=== PATIENT | male | born 1935 | race Caucasian/White ===

== ENCOUNTER 2017-05-05 07:29 | Emergency (ER) | payer MEDICARE, BC ==
[~2017-05-05] VITALS: Ht 180.3 cm; Wt 86.2 kg
[2017-05-05 07:32] VITALS: BP 159/93; PULSE 85; RESP 12; TEMP 97.7; O2SAT 97
[2017-05-05] MEDS ORDERED: COLA100C5 PO (07:58)
[2017-05-05] MEDS ORDERED: MAGNSOL2 PO (07:58)
--- NOTE | 2017-05-05 07:58 | PD ---
HPI Chief Complaint: Complaint Time Seen by Provider: 07:34 Travel History International Travel<30 days: No Contact w/Intl Traveler<30days: No Traveled to known affect area: No History of Present Illness HPI The patient is a 81 year-old male who presents to the emergency department for urinary retention and constipation. The patient states she is currently visiting from [place], playing golf with some local friends. The patient states he's had difficulty having a bowel movement over the last 3 days. He now notes difficulty urinating over the last 24 hours. The patient states he has had very little urine output since yesterday, now complains of low back pain and mild abdominal distention. He does have a history of enlarged prostate for which he takes alfusozin. He has had a previous Castanon catheter placed in the past for urinary obstruction. He denies any nausea, vomiting, or decreased appetite. He denies any associated fever, chills, or sweats. He does not have a local primary physician. Symptoms are moderate, possibly exacerbated by constipation and/or benign prostatic hypertrophy, and there are no current alleviating factors. PFSH Past Medical History Narrative Medical Benign prostatic hypertrophy, atrial fibrillation with previous ablation, arthritis Past Surgical History Narrative Surgical Appendectomy, arthroscopic right knee surgery, cardiac ablation Social History Tobacco Use: No Allergies-Medications (Allergen,Severity, Reaction): Coded Allergies: No Known Allergies (Verified Allergy, Unknown, 05/05/17) Reported Meds & Prescriptions Reported Meds & Active Scripts Active Magnesium Citrate Liq (Magnesium Citrate) 300 Ml Liq 300 Ml PO ONCE Colace (Docusate Sodium) 100 Mg Capsule 1 Tab PO BID 10 Days Reported Flexeril (Cyclobenzaprine HCl) 5 Mg Tab 5 Mg PO TID PRN Alfuzosin ER 24 HR 10 Mg Tab 10 Mg PO HS Atorvastatin (Atorvastatin Calcium) 20 Mg Tab 20 Mg PO DAILY Xarelto (Rivaroxaban) 20 Mg Tab 20 Mg PO HS Review of Systems Except as stated in HPI: all other systems reviewed are Neg General / Constitutional: No: Fever Cardiovascular: No: Chest Pain or Discomfort Respiratory: No: Shortness of Breath Gastrointestinal: Positive: Constipation, No: Nausea, Vomiting, Abdominal Pain Genitourinary: Positive: Decreased Urinary Output, No: Urgency, Frequency, Dysuria Musculoskeletal: No: Weakness, Edema Neurologic: No: Dizziness Physical Exam Narrative GENERAL: Awake, alert, pleasant 81-year-old male who appears his stated age and is in no acute respiratory distress. SKIN: Focused skin assessment warm/dry. HEAD: Atraumatic. Normocephalic. EYES: Pupils equal and round. No scleral icterus. No injection or drainage. ENT: No nasal bleeding or discharge. Mucous membranes pink and moist. NECK: Trachea midline. No JVD. GASTROINTESTINAL: Abdomen soft, mildly distended lower abdomen. No guarding or rigidity. Genitourinary: Circumcised phallus. Rectal: Small hard stool in the rectal vault which was manually disimpacted. MUSCULOSKELETAL: No obvious deformities. No clubbing. No cyanosis. No edema. NEUROLOGICAL: Awake and alert. No obvious cranial nerve deficits. Motor grossly within normal limits. Normal speech. PSYCHIATRIC: Appropriate mood and affect; insight and judgment normal. Data Data Last Documented VS Vital Signs Date Time Temp Pulse Resp B/P (MAP) Pulse Ox O2 Delivery O2 Flow Rate FiO2 05/05/17 07:32 97.7 85 12 159/93 (115) 97 Orders Orders Urinary Catheter Insert/Apply (05/05/17 07:45) Cath, Leg Strap Ea (05/05/17 07:45) Bag, Leg 32oz Sterile Large Ea (05/05/17 07:45) MDM Medical Decision Making Medical Screen Exam Complete: Yes Emergency Medical Condition: Yes Medical Record Reviewed: Yes Differential Diagnosis Differential diagnosis includes urinary retention, benign prostatic hypertrophy , constipation, dehydration, fecal impaction, small bowel obstruction. Narrative Course A bedside ultrasound was performed which reveals an enlarged bladder, just inferior to the umbilicus. Therefore, Castanon catheter was placed after fecal impaction was performed. The patient had clear urine output. The Castanon catheter was attached to a leg bag. The patient was discharged home with a Castanon catheter attached leg bag, advised to follow-up with his urologist when he returns home to [place] later this week. The patient had over 800 cc of clear yellow urine output after Castanon catheter was placed, his back pain did improve. He is stable for outpatient follow-up. Procedures Procedure Narrative A bedside ultrasound was performed using a curvilinear probe which revealed an enlarged bladder just inferior to the umbilicus. Patient tolerated the procedure without difficulty. There is no obvious complications. Diagnosis Primary Impression: Urinary retention Additional Impression: Fecal impaction in rectum Patient Instructions: General Instructions Additional Instructions: Colace and magnesium citrate as directed. Castanon catheter as directed. Follow- up with your urologist. Return if symptoms worsen or progress. Plenty of fluids to stay hydrated. Med/Other Pt SpecificInfo: Prescription(s) given Scripts Magnesium Citrate Liq (Magnesium Citrate Liq) 300 Ml Liq 300 ML PO ONCE, #1 BOTTLE 0 Refills Prov: Horacio Martinez MD 05/05/17 Docusate Sodium (Colace) 100 Mg Capsule 1 TAB PO BID for 10 Days Prov: Horacio Martinez MD 05/05/17 Disposition: 01 DISCHARGE HOME Condition: Stable Horacio Martinez MD May 05, 2017 07:58
[2017-05-05] MEDS ORDERED: XARE20TA PO (08:01)
[2017-05-05] MEDS ORDERED: CYCL5TAB PO (08:01)
[2017-05-05] MEDS ORDERED: ALFU10TA2 PO (08:01)
[2017-05-05] MEDS ORDERED: ATOR20TA15 PO (08:01)
== END 2017-05-05 10:14 | disposition home or self-care (01) ==
LOC: NEPC 07:29
DX: R33.9 Retention of urine, unspecified (principal); K56.41 Fecal impaction; N40.0 Benign prostatic hyperplasia without lower urinary tract symptoms; I48.91 Unspecified atrial fibrillation; Z79.899 Other long term (current) drug therapy
CPT/HCPCS: 51702

== ENCOUNTER 2017-05-06 19:38 | Emergency (ER) | payer MEDICARE, BC ==
[~2017-05-06 19:38] MED LIST: ALFU10TA2 PO; ATOR20TA15 PO; COLA100C5 PO; CYCL5TAB PO; MAGNSOL2 PO; XARE20TA PO
[2017-05-06 19:40] VITALS: BP 133/76; PULSE 77; RESP 16; TEMP 97.8; O2SAT 96
--- NOTE | 2017-05-06 20:03 | PD ---
HPI Chief Complaint: Complaint Time Seen by Provider: 19:57 Travel History International Travel<30 days: No Contact w/Intl Traveler<30days: No Traveled to known affect area: No History of Present Illness HPI 81-year-old male presents to emergency room for Vazquez catheter removal. Vazquez catheter was placed while in the emergency room 2 days ago, patient reports that he will be driving to [place] tomorrow and would like the vazquez catheter to be removed. Patient with no other c/o at this time. History Social History Alcohol Use: Yes (OCCASSIONAL) Tobacco Use: No Allergies-Medications (Allergen,Severity, Reaction): Coded Allergies: No Known Allergies (Verified Allergy, Unknown, 05/05/17) Reported Meds & Prescriptions Reported Meds & Active Scripts Active Magnesium Citrate Liq (Magnesium Citrate) 300 Ml Liq 300 Ml PO ONCE Colace (Docusate Sodium) 100 Mg Capsule 1 Tab PO BID 10 Days Reported Flexeril (Cyclobenzaprine HCl) 5 Mg Tab 5 Mg PO TID PRN Alfuzosin ER 24 HR 10 Mg Tab 10 Mg PO HS Atorvastatin (Atorvastatin Calcium) 20 Mg Tab 20 Mg PO DAILY Xarelto (Rivaroxaban) 20 Mg Tab 20 Mg PO HS Review of Systems General / Constitutional: No: Fever Eyes: No: Visual changes HENT: No: Headaches Cardiovascular: No: Chest Pain or Discomfort Respiratory: No: Shortness of Breath Gastrointestinal: No: Abdominal Pain Genitourinary: No: Dysuria Musculoskeletal: No: Pain Skin: No Rash Neurologic: No: Weakness Psychiatric: No: Depression Endocrine: No: Polydipsia Hematologic/Lymphatic: No: Easy Bruising Physical Exam Narrative GENERAL: Well-nourished, well-developed patient. SKIN: Focused skin assessment warm/dry. HEAD: Normocephalic. EYES: No scleral icterus. No injection or drainage. NECK: Supple, trachea midline. No JVD or lymphadenopathy. CARDIOVASCULAR: Regular rate and rhythm without murmurs, gallops, or rubs. RESPIRATORY: Breath sounds equal bilaterally. No accessory muscle use. GASTROINTESTINAL: Abdomen soft, non-tender, nondistended. : FC in place MUSCULOSKELETAL: No cyanosis, or edema. BACK: Nontender without obvious deformity. No CVA tenderness. Data Data Last Documented VS Vital Signs Date Time Temp Pulse Resp B/P (MAP) Pulse Ox O2 Delivery O2 Flow Rate FiO2 12/14/17 19:40 97.8 77 16 133/76 (95) 96 Room Air MDM Medical Screen Exam Complete: Yes Emergency Medical Condition: No Narrative Course Patient will be driving home to [place] tomorrow. He will follow up with his urologist in [place] as he has history of urinary retention in the past. Plan to leave vazquez catheter in place at this time as he is afraid of urinary retention on route home to [place]. Patient with no other c/o at this time. A medical screening exam was performed: At the time of evaluation the presenting medical condition was determined not to be of an emergent nature. The patient was given the option of receiving additional care, but declined. Patient was given options for additional community resources from which to obtain care. The Patient Has Been advised to seek medical attention for their presenting complaint. The patient has been advised to return to the ER at any time if an emergent condition develops. Primary Impression: Encounter for medical screening examination Disposition: 01 DISCHARGE HOME Condition: Stable Jesica Carcamo DO May 06, 2017 20:03
== END 2017-05-06 20:02 | disposition left against medical advice (07) ==
LOC: NEPD 19:38
DX: R33.9 Retention of urine, unspecified (principal)
CPT/HCPCS: 99281